=== PATIENT | male | born 1960 | race Caucasian/White ===

== ENCOUNTER 2017-11-19 12:05 | Emergency (ER) | payer OTHER ==
[~2017-11-19] VITALS: Ht 175.3 cm; Wt 67.6 kg
[2017-11-19 12:11] VITALS: Ht 175.3 cm; Wt 67.6 kg
[2017-11-19 13:28] LABS: BASOPHIL % 0.4 % (0-2); PLATELET COUNT 228 x10^3mcL (130-400); RED CELL DISTRIBUTION WIDTH 13.1 % (11.5-14.5)
[2017-11-19 13:35] LABS: CARBON DIOXIDE 30.6 mmol/L (21-32); CHLORIDE SERUM 100 mmol/L (98-107); CREATININE SERUM 1.1 mg/dL (0.7-1.3); GFR1 > 60 mL/min; GLUCOSE SERUM 98 mg/dL (74-106); POTASSIUM SERUM 4.1 mmol/L (3.5-5.1); SODIUM SERUM 135 mmol/L (136-145)
[2017-11-19 13:39] LABS: ALBUMIN 3.6 g/dL (3.4-5.0); ALKALINE PHOSPHATASE 79 U/L (46-116); ALT/SGPT 28 U/L (16-63); AST/SGOT 16 U/L (15-37); BILIRUBIN TOTAL 1.89 mg/dL (0.20-1.00); LIPASE 98 IU/L (73-393); TOTAL PROTEIN, SERUM 8.2 g/dL (6.4-8.2)
[2017-11-19 14:56] LABS: UA SPECIFIC GRAVITY 1.025 (1.005-1.035); microscopic required? YES; urine erythrocyte 1+ (NEGATIVE)
[2017-11-19 15:47] VITALS: BP 121/78
== END 2017-11-19 15:47 | disposition home or self-care (01) ==
LOC: ED 12:05
PROVIDERS: Emergency Medicine
DX: K57.92 Diverticulitis of intestine, part unspecified, without perforation or abscess without bleeding (principal); R31.9 Hematuria, unspecified
CPT/HCPCS: J1885